=== PATIENT | male | born 1980 | race Caucasian/White ===

== ENCOUNTER → 2021-11-21 | Outpatient (CLI) | payer BC ==
[~2021-11-21] MED LIST: IBUPROFEN800 MG PO; VIBRAMYCIN100 MG PO
== END ==
LOC: KOH-I 13:08
DX: M25.511 Pain in right shoulder (principal); M54.51 Vertebrogenic low back pain; M50.321 Other cervical disc degeneration at C4-C5 level; M47.816 Spondylosis without myelopathy or radiculopathy, lumbar region
CPT/HCPCS: 72040; 72110; 73030